=== PATIENT | female | born 1965 | race American Indian/Alaskan Native ===

== ENCOUNTER 2019-04-19 00:30 | Emergency (ER) | payer SELFPAY ==
--- NOTE | 2019-04-19 01:36 | Emergency Department Report ---
HPI - General Chief Complaint: Allergic Reaction Time Seen by Provider: 04/19/19 01:20 ED Past Medical Hx - Past Medical History Previous Medical History?: No - Surgical History Past Surgical History?: No - Social History Smoking Status: Never Smoker Substance Use Type: None - Medications Home Medications: Home Medications Medication Instructions Recorded Confirmed Last Taken Type Cyclobenzaprine HCl [Flexeril 5 MG 5 mg PO TID PRN #15 tablet 06/10/13 Unknown Rx TAB] ED Review of Systems ROS: Stated complaint: ALLERGIC REACTION,FEVERISH,PAIN Other details as noted in HPI Physical Exam - Physical Exam Vital Signs: Vital Signs 04/19/19 00:55 Temperature 98.0 F Pulse Rate 90 Respiratory 12 Rate Blood Pressure 111/75 O2 Sat by Pulse 99 Oximetry ED Course Vital Signs 04/19/19 00:55 Temperature 98.0 F Pulse Rate 90 Respiratory 12 Rate Blood Pressure 111/75 O2 Sat by Pulse 99 Oximetry Critical care attestation.: If time is entered above; I have spent that time in minutes in the direct care of this critically ill patient, excluding procedure time. ED Disposition Condition: Stable Referrals: PRIMARY CARE [Primary Care Provider] - 3-5 Days
[2019-04-19] MEDS ORDERED: diphenhydrAMINE 50 MG/ML VIAL IM ONE (01:37)
[2019-04-19] MEDS ORDERED: FAMOTIDINE 20 MG TAB PO ONE (01:37)
[2019-04-19] MEDS ORDERED: dexAMETHasone 20 MG/5 ML VIAL IM ONE (01:38)
--- NOTE | 2019-04-19 01:51 | Emergency Department Report ---
ED Rash HPI - HPI Chief Complaint: Allergic Reaction Stated Complaint: ALLERGIC REACTION,FEVERISH,PAIN Time Seen by Provider: 04/19/19 01:20 Duration: 1 Day Location: Chest, Abdomen, Upper Extremities Suspected Cause: Unknown Rash Symptoms: Yes Itching, No Facial Swelling, No Tongue/Oral Swelling, No Breathing Difficulties, No Choking Sensation, No Wheezing/Dyspnea, No Peeling, No Blistering, No Fever, No Lightheaded, No Malaise, No Myalgias Severity: moderate Other History: 54y/o female presents to emergency room for allergic reaction starting yesterday of unknown origin. Patient reports that she take children's Benadryl last night about 7:30 PM the rash is back today. Patient denies any shortness of breathing difficulty speaking or difficulty swallowing chest pain or nausea no vomiting no diarrhea. ED Review of Systems ROS: Stated complaint: ALLERGIC REACTION,FEVERISH,PAIN Other details as noted in HPI Comment: All other systems reviewed and negative ED Past Medical Hx - Past Medical History Previous Medical History?: No - Surgical History Past Surgical History?: No - Social History Smoking Status: Never Smoker Substance Use Type: None - Medications Home Medications: Home Medications Medication Instructions Recorded Confirmed Last Taken Type Cyclobenzaprine HCl [Flexeril 5 MG 5 mg PO TID PRN #15 tablet 06/10/13 Unknown Rx TAB] Famotidine [Pepcid] 20 mg PO BID #14 tablet 04/19/19 Unknown Rx Loratadine [Claritin] 10 mg PO QDAY #15 tablet 04/19/19 Unknown Rx predniSONE [Deltasone] 40 mg PO QDAY #10 tab 04/19/19 Unknown Rx Rash Exam - Exam General: Vital signs noted. No distress. Alert and acting appropriately. HEENT: No Periorbital Edema, No Conjuctival Injection, No Chemosis, No Perioral Edema, No Tongue Edema, No Uvular Edema, No Compromised Airway, No Drooling Lungs: Yes Good Air Exchange (Normal Breath Sounds), No Wheezes, No Ronchi, No Stridor, No Cough, No Labored Respirations, No Retractions, No Use of Accessory Muscles, No Other Abnormal Lung Sounds Heart: Yes Regular, No Murmur Skin: Yes Urticarial Rash, No Maculopapular Rash, No Morbilliform rash, No Bulla(e), No Excoriations, No Weeping, No Tenderness, No Erythema, No Edema, No Encrustations, No Other Other: Positive: Abdomen Normal, Neurologic Normal, Musculoskeletal Normal ED Course Vital Signs 04/19/19 00:55 Temperature 98.0 F Pulse Rate 90 Respiratory 12 Rate Blood Pressure 111/75 O2 Sat by Pulse 99 Oximetry ED Medical Decision Making - Medical Decision Making 54y/o female presents to emergency room for allergic reaction starting yesterday of unknown origin. Patient reports that she take children's Benadryl last night about 7:30 PM the rash is back today. Patient denies any shortness of breathing difficulty speaking or difficulty swallowing chest pain or nausea no vomiting no diarrhea. Patient Is given Benadryl, dexamethasone IM and Pepcid 40 mg by mouth. Patient be discharged home on prednisone and Claritin and Pepcid. Patient is to follow- up with her primary care provider or allergies. Critical care attestation.: If time is entered above; I have spent that time in minutes in the direct care of this critically ill patient, excluding procedure time. ED Disposition Clinical Impression: Urticaria Allergic reaction Qualifiers: Encounter type: initial encounter Qualified Code(s): T78.40XA - Allergy, unspecified, initial encounter Disposition: - TO HOME OR SELFCARE Is pt being admited?: No Does the pt Need Aspirin: No Condition: Stable Instructions: Urticaria (ED) Additional Instructions: Medications as prescribed. Follow-up with a primary care provider or an allerg ist. Prescriptions: Loratadine [Claritin] 10 mg PO QDAY #15 tablet predniSONE [Deltasone] 40 mg PO QDAY #10 tab Famotidine [Pepcid] 20 mg PO BID #14 tablet Referrals: PRIMARY CARE,MD [Primary Care Provider] - 3-5 Days Your, Primary Care Provider [Other] - 3-5 Days Forms: Work/School Release Form(ED), Accompanied Note
[2019-04-19 02:44] VITALS: BP 118/68
== END 2019-04-19 02:43 | disposition home or self-care (01) ==
LOC: ED 00:30
DX: L50.0 Allergic urticaria (principal); Z79.899 Other long term (current) drug therapy
CPT/HCPCS: 96372; 99282; J1100; J1200